=== PATIENT | male | born 1960 | race Caucasian/White ===

== ENCOUNTER → 2017-02-18 | Outpatient (CLI) | payer BC, OTHER ==
--- NOTE | 2017-02-18 11:02 | DIAGNOSTIC IMAGING REPORT ---
CHEST 2 VIEWS ROUTINE CLINICAL HISTORY: COPD HISTORY OF LOBECTOMY COMPARISON STUDY: 02/20/2016 FINDINGS: There is stable postoperative changes involving the right hemithorax. The heart is normal in size. There is no failure. There is no focal pulmonary consolidation. There are no pleural effusions.[ IMPRESSION: No active disease in the chest. Electronically signed by: Grant Smart M.D. 02/18/2017 11:00 AM Dictated Date/Time: 02/18/2017 11:00 AM
== END | disposition home or self-care (01) ==
LOC: C.RADBBURG 10:42
PROVIDERS: ATTEND Physician Assistant
DX: J44.9 Chronic obstructive pulmonary disease, unspecified (principal)

== ENCOUNTER → 2018-03-02 | Outpatient (CLI) | payer OTHER ==
--- NOTE | 2018-03-02 09:41 | DIAGNOSTIC IMAGING REPORT ---
CHEST 2 VIEWS ROUTINE CLINICAL HISTORY: COPD. Bronchoalveolar carcinoma. COMPARISON STUDY: Chest radiograph February 18, 2017. FINDINGS: No pneumothorax or pleural effusion is noted. Linear left basilar opacity is suggestive atelectasis or scarring. Postoperative findings within the right hemithorax are unchanged since prior exam. Cardiomediastinal silhouette is stable. The appearance of the chest is unchanged. IMPRESSION: No acute cardiopulmonary findings. No change in appearance of the chest. Electronically signed by: Tae Machado M.D. 03/02/2018 9:40 AM Dictated Date/Time: 03/02/2018 9:36 AM
== END | disposition home or self-care (01) ==
LOC: C.RAD1850 09:21
PROVIDERS: ATTEND Physician Assistant
DX: C34.90 Malignant neoplasm of unspecified part of unspecified bronchus or lung (principal)